=== PATIENT | female | born 1980 | race Caucasian/White ===

== ENCOUNTER 2022-05-06 17:29 | Emergency (ER) | payer OTHER ==
[~2022-05-06] VITALS: Ht 175.3 cm; Wt 83.9 kg
[2022-05-06 18:13] LABS: CLARITY,URINE CLEAR (CLEAR); COLOR,URINE YELLOW (YELLOW); KETONES,URINE NEGATIVE (NEGATIVE); LEUKOCYTE ESTERASE ,URINE NEGATIVE (NEGATIVE); NITRITE,URINE NEGATIVE (NEGATIVE); PROTEIN,URINE DIPSTICK NEGATIVE (NEGATIVE); URINE UROBILINOGEN 0.2 mg/dL (0.2 - 1)
[2022-05-06 18:26] LABS: RBC,URINE 0-5 /HPF (0-5)
== END 2022-05-06 18:56 | disposition home or self-care (01) ==
LOC: ER 17:38
DX: R33.9 Retention of urine, unspecified (principal); R10.30 Lower abdominal pain, unspecified; F41.9 Anxiety disorder, unspecified
CPT/HCPCS: 51700; 81001; 87086; 99283